=== PATIENT | male | born 1955 | race African-American/Black ===

== ENCOUNTER 2022-05-31 12:18 | Inpatient (IN) | payer MEDICARE, MEDICAID ==
[~2022-05-31] VITALS: Ht 175.3 cm; Wt 70.8 kg
[2022-05-31] MEDS ORDERED: IPRATROPIUM BROMIDE (0.02%) 0.5MG/2.5ML NEB HHN STA (13:13)
[2022-05-31] MEDS ORDERED: METHYLPREDNISOLONE SOD SUCC 125 MG/2 ML VIAL IV STA (13:13)
[2022-05-31] MEDS ORDERED: ALBUTEROL (0.083%) 2.5MG/3ML NEB HHN SCH (13:30)
[2022-05-31 16:23] LABS: BASOPHILS % 0.3 % (0.0-2.0); EOSINOPHILS % 0.5 % (0.0-5.0); HEMATOCRIT. 34.8 % (42.0-52.0); HEMOGLOBIN. 11.9 g/dL (14.0-18.0); LYMPHOCYTES % 10.7 % (20.0-50.0); MEAN CORPUSCULAR HEMOGLOBIN 31.6 pg (28.0-32.0); MEAN CORPUSCULAR VOLUME 92.6 fL (80.0-94.0); MEAN PLATELET VOLUME 8.6 fl (7.4-10.4); MONOCYTES % 7.4 % (2.0-8.0); NEUTROPHILS % 81.1 % (40.0-76.0); PLATELET 281 x1000/uL (130-400); RED BLOOD CELL COUNT 3.76 mill/uL (4.7-6.1); RED CELL DISTRIBUTION WIDTH 14.2 % (11.6-14.6)
[2022-05-31 16:41] LABS: CHLORIDE 105 mEq/L (98-107)
[2022-05-31] MEDS ORDERED: METHYLPREDNISOLONE SOD SUCC 125 MG/2 ML VIAL IV NR (18:45)
[2022-05-31] MEDS ORDERED: ONDANSETRON HCL 4MG/2ML INJ IV PRN (19:00)
[2022-05-31] MEDS ORDERED: DIPHENHYDRAMINE 50MG/ML VIAL IV PRN (19:00)
[2022-05-31] MEDS ORDERED: ACETAMINOPHEN 325MG TABLET PO PRN (19:00)
[2022-05-31] MEDS ORDERED: CLONIDINE 0.1MG TABLET PO PRN (19:00)
[2022-05-31] MEDS ORDERED: IPRATROPIUM/ALBUTEROL 0.5-3(2.5)MG/3ML NEB HHN PRN (19:00)
[2022-05-31] MEDS: METHYLPREDNISOLONE SOD SUCC 125 MG/2 ML VIAL IV SCH (19:00)
[2022-05-31] MEDS: AZITHROMYCIN 500MG/250ML 250 ML IV SCH (20:00)
[2022-05-31] MEDS: CEFTRIAXONE 1 G PREMIX 50 ML IV SCH (22:41)
[2022-05-31 23:00] VITALS: BP 154/94
[2022-06-01] VITALS: BP 154/94
[2022-06-01 04:00] VITALS: BP 119/68
[2022-06-01] MEDS: METHYLPREDNISOLONE SOD SUCC 125 MG/2 ML VIAL IV SCH ×4 (05:38→18:42)
[2022-06-01 07:50] LABS: HEMATOCRIT. 34.6 % (42.0-52.0); HEMOGLOBIN. 11.6 g/dL (14.0-18.0); MEAN CORPUSCULAR HEMOGLOBIN 30.5 pg (28.0-32.0); MEAN CORPUSCULAR VOLUME 91.4 fL (80.0-94.0); MEAN PLATELET VOLUME 8.9 fl (7.4-10.4); PLATELET 315 x1000/uL (130-400); RED BLOOD CELL COUNT 3.79 mill/uL (4.7-6.1); RED CELL DISTRIBUTION WIDTH 14.4 % (11.6-14.6)
[2022-06-01 08:00] VITALS: BP 118/67
[2022-06-01 08:12] LABS: CHLORIDE 108 mEq/L (98-107)
[2022-06-01] MEDS ORDERED: BENZONATATE 100MG CAPSULE PO PRN (11:45)
[2022-06-01 12:00] VITALS: BP 121/71
[2022-06-01 14:08] LABS: PLATELET ESTIMATE NORMAL
[2022-06-01 16:00] VITALS: BP 143/78
[2022-06-01] MEDS ORDERED: IPRATROPIUM/ALBUTEROL 0.5-3(2.5)MG/3ML NEB HHN PRN (18:45)
[2022-06-01] MEDS ORDERED: ALBUTEROL (0.083%) 2.5MG/3ML NEB HHN PRN (18:45)
[2022-06-01] MEDS ORDERED: IPRATROPIUM BROMIDE (0.02%) 0.5MG/2.5ML NEB HHN PRN (18:45)
[2022-06-01] MEDS ORDERED: FLUT1DIS3 INH (18:53)
[2022-06-01 20:00] VITALS: BP 108/61
[2022-06-01] MEDS: AZITHROMYCIN 500MG/250ML 250 ML IV SCH (20:00)
[2022-06-01] MEDS ORDERED: IPRATROPIUM/ALBUTEROL 0.5-3(2.5)MG/3ML NEB HHN SCH (20:00)
[2022-06-01] MEDS: NICOTINE 14MG PATCH TD SCH (20:43)
[2022-06-01] MEDS ORDERED: CEFTRIAXONE 1,000 MG in DEXTROSE 5% WATER 50 ML IV SCH (21:00)
[2022-06-01] MEDS: CEFTRIAXONE 1 G PREMIX 50 ML IV SCH (22:00)
[2022-06-01] MEDS: GUAIFENESIN 600MG ER TABLET PO SCH (23:00)
[2022-06-02] VITALS: BP 106/63
[2022-06-02] MEDS: METHYLPREDNISOLONE SOD SUCC 125 MG/2 ML VIAL IV SCH ×3 (00:50→13:04)
[2022-06-02 04:00] VITALS: BP 108/62
[2022-06-02 08:00] VITALS: BP 144/72
[2022-06-02] MEDS: GUAIFENESIN 600MG ER TABLET PO SCH (08:55)
[2022-06-02] MEDS: NICOTINE 14MG PATCH TD SCH (08:56)
[2022-06-02] MEDS: IPRATROPIUM BROMIDE (0.02%) 0.5MG/2.5ML NEB HHN SCH ×2 (09:01→12:09)
[2022-06-02] MEDS: ALBUTEROL (0.083%) 2.5MG/3ML NEB HHN SCH ×2 (09:01→12:08)
[2022-06-02] MEDS ORDERED: P20 MT (09:43)
[2022-06-02] MEDS ORDERED: PANT40TA51 MT (09:43)
[2022-06-02] MEDS ORDERED: GUAI600T44 PO (09:43)
[2022-06-02] MEDS ORDERED: ALBU18HF2 IH (09:43)
[2022-06-02 12:00] VITALS: BP 136/80
[2022-06-02 13:55] VITALS: BP 136/80
== END 2022-06-02 14:50 | disposition home or self-care (01) | DRG 193 ==
LOC: ER 13:30 → EDBEDREQ 15:24 → MICUSO 17:11 → EDBEDREQTM 17:15 → EDBEDREQSVC 17:15 → EDBEDREQ 17:15 → 6EST 22:13
PROVIDERS: ADMIT Family Medicine Adult Medicine; ATTEND Family Medicine Adult Medicine
DX: J18.9 Pneumonia, unspecified organism (principal); J96.01 Acute respiratory failure with hypoxia; J44.1 Chronic obstructive pulmonary disease with (acute) exacerbation; E44.0 Moderate protein-calorie malnutrition; J44.0 Chronic obstructive pulmonary disease with (acute) lower respiratory infection; D64.9 Anemia, unspecified; F17.200 Nicotine dependence, unspecified, uncomplicated; J44.9 Chronic obstructive pulmonary disease, unspecified; F17.210 Nicotine dependence, cigarettes, uncomplicated; Z20.822 Contact with and (suspected) exposure to COVID-19; Z79.51 Long term (current) use of inhaled steroids; Z68.23 Body mass index [BMI] 23.0-23.9, adult; Z71.6 Tobacco abuse counseling
CPT/HCPCS: 36415; 71045; 71275; 80053; 83880; 84484; 85025; 85379; 87426; 87804; 93005; 93970; 94640; 99285; J0456; J0696; J2930; J7060